=== PATIENT | female | born 1995 | race Caucasian/White ===

== ENCOUNTER 2016-07-25 15:24 | Outpatient (CLI) | payer SELFPAY ==
[2016-07-25 16:03] LABS: APPEARANCE CLOUDY (CLEAR); COLOR YELLOW (YELLOW)
[2016-07-25 16:04] LABS: BILIRUBIN NEGATIVE (NEGATIVE); GLUCOSE NEGATIVE (NEGATIVE); KETONE MODERATE mg/dL (NEGATIVE); LEUKOCYTE ESTERASE 2+ (NEGATIVE); NITRITE NEGATIVE (NEGATIVE); PROTEIN NEGATIVE (NEGATIVE); SPECIFIC GRAVITY 1.005 (1.005-1.020); UROBILINOGEN NORMAL (NORMAL)
[2016-07-25 16:05] LABS: RED CELLS - URINE 0-5 /hpf (0-5)
[2016-07-25 16:06] LABS: BACTERIA MODERATE /hpf (NONE SEEN); EPITHELIAL CELLS 0-5 /hpf (0-5); MUCUS <1+ /lpf (NONE SEEN)
[2016-07-25 16:48] LABS: BASOPHILS 0.1 % (0.0-2.0); EOSINOPHILS 0.1 % (0-7); HEMOGLOBIN 11.4 g/dL (12-16); IMMATURE GRANULOCYTES 1.3 % (0-5); LYMPHOCYTES 5.4 % (15-50); MCH 31.1 pg (26.0-34.0); MCHC 33.5 g/dL (31.0-37.0); MCV 92.9 fL (80.0-100.0); MEAN PLATELET VOLUME 13.1 fL (7.4-10.4); MONOCYTES 9.7 % (2-11); NEUTROPHILS 83.4 % (40-80); PLATELET COUNT 98 10x3/uL (130-400); RBC 3.66 10x6/uL (4.00-5.40); RDW 12.7 % (11.5-14.5); WBC 7.9 10x3/uL (4.8-10.8)
[2016-07-25 17:10] LABS: ALBUMIN 2.9 g/dL (3.4-5.0); ALKALINE PHOSPHATASE 151 U/L (46-116); ALT (SGPT) 17 U/L (10-68); BILIRUBIN - TOTAL 0.28 mg/dL (0.2-1.3); CALC OSMOLALITY 278 mosm/kg (275-300); CALCIUM 7.9 mg/dL (8.5-10.1); CHLORIDE - SERUM 106 mmol/L (98-107); CREATININE - SERUM 0.6 mg/dL (0.6-1.3); GLUCOSE 88 mg/dL (74-106); POTASSIUM - SERUM 3.4 mmol/L (3.5-5.1); PROTEIN - SERUM 6.3 g/dL (6.4-8.2); SODIUM 142 mmol/L (136-145); UREA NITROGEN 4 mg/dL (7-18); eGFR NON AFRICAN AMERICAN > 90 mL/min (90-120)
[2016-08-18 09:05] VITALS: BMI 23.0
== END 2016-07-26 08:40 | disposition home or self-care (01) ==
LOC: D.LDO 15:24 → D.LD 15:24 → D.LDO 07-26 08:40
PROVIDERS: Obstetrics & Gynecology
DX: Z34.03 Encounter for supervision of normal first pregnancy, third trimester (principal); Z3A.37 37 weeks gestation of pregnancy; R51 Headache

== ENCOUNTER → 2016-07-30 17:05 | Outpatient (CLI) | payer MEDICAID ==
[~2016-07-30 17:05] MED LIST: IBUPROFEN600 MG PO; PERCOCET 5-3251 TAB PO; PRENATAL COMPLE1 TAB PO
[2016-08-18 09:05] VITALS: BMI 23.0
== END | disposition home or self-care (01) ==
LOC: D.LDO 17:05
DX: O36.5930 Maternal care for other known or suspected poor fetal growth, third trimester, not applicable or unspecified (principal); Z3A.38 38 weeks gestation of pregnancy

== ENCOUNTER → 2016-08-09 12:28 | Outpatient (CLI) | payer MEDICAID ==
[2016-08-09 12:56] LABS: BASOPHILS 0.1 % (0.0-2.0); EOSINOPHILS 0.1 % (0-7); HEMATOCRIT 31.7 % (36.0-48.0); HEMOGLOBIN 10.5 g/dL (12-16); IMMATURE GRANULOCYTES 0.9 % (0-5); LYMPHOCYTES 21.4 % (15-50); MCH 30.1 pg (26.0-34.0); MCHC 33.1 g/dL (31.0-37.0); MCV 90.8 fL (80.0-100.0); MEAN PLATELET VOLUME 12.8 fL (7.4-10.4); MONOCYTES 12.6 % (2-11); NEUTROPHILS 64.9 % (40-80); PLATELET COUNT 111 10x3/uL (130-400); RBC 3.49 10x6/uL (4.00-5.40); RDW 13.1 % (11.5-14.5); WBC 7.7 10x3/uL (4.8-10.8)
[2016-08-18 09:05] VITALS: BMI 23.0
== END | disposition home or self-care (01) ==
LOC: D.LDO 12:28
PROVIDERS: Obstetrics & Gynecology
DX: O36.5930 Maternal care for other known or suspected poor fetal growth, third trimester, not applicable or unspecified (principal); Z3A.39 39 weeks gestation of pregnancy

== ENCOUNTER → 2016-08-16 09:35 | Outpatient (CLI) | payer MEDICAID ==
[2016-08-16 10:55] LABS: BASOPHILS 0.2 % (0.0-2.0); EOSINOPHILS 0.2 % (0-7); HEMATOCRIT 31.8 % (36.0-48.0); HEMOGLOBIN 10.5 g/dL (12-16); IMMATURE GRANULOCYTES 0.7 % (0-5); LYMPHOCYTES 17.5 % (15-50); MCV 90.9 fL (80.0-100.0); MEAN PLATELET VOLUME 12.8 fL (7.4-10.4); MONOCYTES 10.6 % (2-11); NEUTROPHILS 70.8 % (40-80); PLATELET COUNT 104 10x3/uL (130-400)
[2016-08-18 09:05] VITALS: BMI 23.0
== END | disposition home or self-care (01) ==
LOC: D.LDO 09:35
PROVIDERS: Obstetrics & Gynecology
DX: Z34.93 Encounter for supervision of normal pregnancy, unspecified, third trimester (principal); Z3A.40 40 weeks gestation of pregnancy

== ENCOUNTER 2016-08-17 02:15 | Inpatient (IN) | payer MEDICAID ==
[2016-08-17] VITALS (24 sets, daily range): BP systolic 105–145; BP diastolic 63–91; BMI 23.0
[~2016-08-17] VITALS: Ht 152.4 cm; Wt 53.5 kg
[2016-08-17 08:24] LABS: HEMATOCRIT 31.6 % (36.0-48.0); HEMOGLOBIN 10.5 g/dL (12-16); MCH 30.3 pg (26.0-34.0); MCHC 33.2 g/dL (31.0-37.0); MCV 91.1 fL (80.0-100.0); MEAN PLATELET VOLUME 13.5 fL (7.4-10.4); RBC 3.47 10x6/uL (4.00-5.40)
[2016-08-17 08:49] LABS: WBC 10.6 10x3/uL (4.8-10.8)
--- NOTE | 2016-08-17 18:51 | NUR ---
THE PATIENT REQUESTED A SHORT STAY IN [place] SO SHE COULD VISIT WITH HER FAMILY
--- NOTE | 2016-08-17 18:52 | NUR ---
MINOR LOCIA NOTED
--- NOTE | 2016-08-17 18:52 | NUR ---
FUNDUS FIRM AT [facility]
--- NOTE | 2016-08-17 19:05 | NUR ---
THIS G1 NOW P1 REC'D TO ROOM 1273 BY Favio ANDERSEN, PLATE MAKER FROM RECOVERY ROOM POST C/S DELIVERY AT 1807. VSS AT THIS TIME. PT AWAKE, ALERT AND ORIENTED X3 PER REPORT.
--- NOTE | 2016-08-17 19:07 | NUR ---
FUNDUS FIRM AND ML @ U. MANDI ADAN SCANT.
--- NOTE | 2016-08-17 19:14 | NUR ---
THIS RN RESUMING CARE OF THIS POST C/S DELIVERY AT 1807. PT'S FATHER CURRENTLY AT BEDSIDE AND SUPPORTIVE OF PT. SHIFT ASSESSMENT COMPLETED. VSS AT THIS TIME. PLAN OF CARE DISCUSSED WITH PT AND HER FATHER. PT TEARFUL AT THIS TIME, STATING "NO ONE HAS DONE ANYTHING THAT I HAVE WANTED TODAY AND I JUST WANT TO SLEEP AND BE LEFT ALONE TO SLEEP." RN EXPLAINED TO PT THE REASONS THAT STAFF ARE CHECKING ON HER CONTINUOUSLY AND THAT WE ARE TRYING TO ENSURE THAT THE BEST AND SAFEST CARE POSSIBLE ARE PROVIDED TO HER AND HER . PT VERBALIZED UNDERSTANDING. PT REQUESTING TO SEE AT THIS TIME EXPLAINED THAT INFANT HAD TO REMAIN IN NBN FOR TRANSITION SHE IS UNABLE TO MAINTAIN BODY TEMP ON HER OWN AND SOON SHE REACHED 98.6 FOLLOWING BATH NBN RN WOULD BRING INFANT TO ROOM FOR BONDING, PT AGAIN BECAME TEARFUL AND STATES AGAIN "NO ONE IS DOING ANYTHING THAT I WANT." RN REINFORCED AND EXPLAINED TO PT THE IMPORTANCE OF GETTING INFANT TO APPROPRIATE BODY TEMP PRIOR TO BRINGING TO ROOM. PT FATHER AT BEDSIDE AND ENCOURAGED PT AND REASSURED HER ALSO THAT INFANT WOULD BE BROUGHT TO ROOM NANI. ORIENTED PT TO ROOM AND CL USE FOR ASSISTANCE. REINFORCED VISITOR POLICY WITH PT AND FAMILY AND ENCOURAGED TO KEEP VISITORS TO A MININIUM AND FOR SHORT PERIODS OF TIME SO THAT PT COULD REST. VERBALIZED UNDERSTANDING. 750 MLS PINK TINGED URINE EMPTIED FOR SANDERS AT THIS TIME. BED PLACED IN LOW POSITION WITH UPPER SIDE RAILS RAISED X2. CL/PHONE PLACED WITHIN REACH. FAMILY MEMBERS AT BEDSIDE VISITING WITH PT AT THIS TIME.
--- NOTE | 2016-08-17 19:54 | NUR ---
DEMEROL EVENTS SPECIALIST INITIATED PER ORDERS. PT INSTRUCTED ON EVENTS SPECIALIST USE. MEDICATION USE AND SIDE EFFECTS DISCUSSED WITH PT AND FAMILY MEMBERS AT BEDSIDE, VERBALIZED AND DEMONSTRATED USE OF EVENTS SPECIALIST FOR PAIN. DENIES QUESTIONS. PAIN CURRENTLY 11/29, ABD CRAMPING WITH "SHARP AND BURNING" TO INCISION. ICE PACK PLACED TO INCISION. ICE CHIPS GIVEN PER REQUEST. DENIES ADDITIONAL NEEDS AT THIS TIME.
--- NOTE | 2016-08-17 20:24 | NUR ---
PAIN REASSESSMENT COMPLETED. PAIN CURRENTLY 08/30, PT REPORTS THAT SHE HAS BEEN RESTING "SOME." EYES CLOSED INITIALLY WHEN RN ENTERED ROOM BUT PT OPENED WHEN RN OPENED DOOR. DENIES NEEDS AT THIS TIME. WILL CONT TO MONITOR AND ASSIST PRN.
--- NOTE | 2016-08-17 20:52 | NUR ---
TOWELS, CHUX, AND LINEN CHANGE COMPLETE. REPOSITIONED PT FROM BACK TO RIGHT SIDE WITH PILLOW PLACED BEHIND BACK FOR COMFORT AND SUPPORT. INCENTIVE SPIROMETER USED WITH PT X8, ENCOURAGED TO USE X10, PT STATES THAT SHE CAN'T AT THIS TIME R/T PAIN. COUGH AND DEEP BREATHING ENCOURAGED AND ATTEMPTED WITH POOR EFFORT BY PT. MODERATE AMT RUBRA LOCHIA TO PERIPAD, NO CLOTS, FUNDUS FIRM, UU. SANDERS CONTINUES TO DRAIN TO BEDSIDE DRAINAGE SYSTEM. PERINUM CLEANSED WITH WARM WASH CLOTHES. BILATERAL LABIA WITH 3+ EDEMA NOTED, ICE PACK APPLIED. NEW PERIPAD APPLIED. BOWELS SOUNDS PRESENT, HYPOACTIVE X4 QUADS, PT REPORTS THAT SHE IS BELCHING AND HAS PASSED FLATUS X1. SPRITE GIVEN PER REQUEST. BLANKETS CHANGED ALSO. BED PLACED IN LOW POSITION WITH UPPER SIDE RAILS RAISED X2, CL/PHONE PLACED WITHIN PT REACH. NBN RN TO ROOM WITH AT THIS TIME TO PROVIDE INSTRUCTION AND ASSISTANCE WITH .
--- NOTE | 2016-08-17 21:21 | NUR ---
RN TO ROOM. PT USING NIPPLE SHEILD. PLASTIC EDGE OF NIPPLE SHEILD FLIPPED OVER, INSTRUCTED AND DEMONSTRATED TO PT IMPORTANCE OF SECURING EDGES OF NIPPLE SHEILD, VERBALIZED UNDERSTANDING. PILLOW PLACED UNDER LEFT ELBOW FOR SUPPORT DURING NURSING. RN ASSISTED WITH GETTING INFANT LATCHED. PT REPORTS THAT ALL FAMILY MEMBERS HAVE LEFT TO GO HOME AND SHE WILL BE STAYING BY HERSELF TO [place] WITH THROUGH THE NIGHT. DENIES NEEDS AT THIS TIME. CL/PHONE WITHIN REACH. INSTRUCTED TO CALL RN IF ASSISTANCE NEEDED WITH FEEDING, VERBALIZED UNDERSTANDING. NBN RN TO ROOM AT 8210.
--- NOTE | 2016-08-17 22:10 | NUR ---
PAIN 5/10, CONSTANT INCISIONAL BURNING. STATES THAT CMM INSPECTOR IS NOT EASING BURNING PAIN BUT IS HELPING WITH CRAMPING. TORADOL GIVEN PER ORDERS, EDUCATED ON TORADOL USES AND SIDE EFFECTS, NODDED. PT CURRENTLY ON RIGHT SIDE WITH HOB AT 30 DEGREES. DENIES ADDITIONAL NEEDS. NEW ICE PACK PLACED TO INCISION AND LABIA. CL/PHONE WITHIN PT REACH. BED IN LOW POSITION WITH UPPER SIDE RAILS RAISED X2.
--- NOTE | 2016-08-17 22:40 | NUR ---
PAIN REASSESSMENT COMPLETED. 010 AT THIS TIME. PT RESTING WITH EYES CLOSED, RESPIRATIONS REGULAR, NO S/S OF DISTRESS NOTED. WILL CONT TO MONITOR AND ASSIST PRN.
--- NOTE | 2016-08-17 23:40 | NUR ---
ROUNDS MADE. PT RESTING WITH EYES CLOSED AT THIS TIME. RESPIRATIONS REGULAR, NO S/S OF DISTRESS NOTED. CL/PHONE WITHIN REACH. BED IN LOW POSITION WITH UPPER SIDE RAILS RAISED X2. WILL CONT TO MONITOR AND ASSIST PRN.
[2016-08-18 00:10] VITALS: BP 118/74
--- NOTE | 2016-08-18 00:10 | NUR ---
VSS. FUNDUS FIRM U1. SMALL AMT RUBRA LOCHIA TO PERIPAD. TOWELS PERIPAD AND CHUX CHANGED. PERINUM CLEANSED. NEW PERIPAD APPLIED. PT REPOSITIONED TO BACK FROM RIGHT SIDE, REFUSED TO TURN TO LEFT SIDE. 850 MLS CLEAR YELLOW URINE EMPTIED FROM SANDERS. PAIN 08/30, PT USED COPY CENTER OPERATOR WITH RN AT BEDSIDE. SPRITE GIVEN PER REQUEST, ROOM TEMP DECREASED PER REQUEST. DENIES ADDITIONAL NEEDS AT THIS TIME. REQUESTS THAT INFANT REMAIN IN N FOR NEXT FEEDING "SO THAT I CAN REST." Jerome MAK, N RN NOTIFIED OF REQUEST. PT CONSENTED TO HAVING FORMULA FOR THIS FEEDING AND REQUESTS THAT INFANT COME TO ROOM AT 0300 FOR NEXT FEEDING. BED PLACED BACK IN LOW POSITION WITH UPPER SIDE RAILS RAISED X2. CL/PHONE WITHIN REACH.
--- NOTE | 2016-08-18 02:06 | NUR ---
ROUNDS MADE. PT USED INCENTIVE SPIROMETER X10, COUGH AND DEEP BREATHING PERFORMED WITH WEAK EFFORT. PT REPOSITIONED TO RIGHT SIDE. SCDS ON. ICE WATER AND JELLO GIVEN PER REQUEST. DENIES ADDITIONAL NEEDS AT THIS TIME. BED IN LOW POSITION WITH UPPER SIDE RAILS RAISED X2. CL/PHONE WITHIN REACH. WILL CONT TO MONITOR AND ASSIST PRN.
--- NOTE | 2016-08-18 04:08 | NUR ---
RN TO BEDSIDE. VSS. 475 MLS EMPTIED FROM SANDERS CATHETER. PT PERFORMED INCENTIVE SPIROMETER X10 AND COUGHING AND DEEP BREATHING WITH WEAK EFFORT. FUNDUS REMAINS FIRM, U1, SMALL AMT RUBRA LOCHIA NOTED TO PERIPAD, NO CLOTS. PERINUM CLEANSED WITH NEW PERIPAD PLACED. GOWN, TOWEL, CHUX, AND PILLOW CASES CHANGED AT THIS TIME. PAIN 4/10 FOLLOWING ACTIVITY TO ABD, SORENESS AND BURNING AT INCISION. GUARD MUSEUM USED WHILE RN AT BEDSIDE. 2-3/10 PRIOR TO ACTIVITY. JELLO AND APPLE JUICE GIVEN PER REQUEST. BOWEL SOUNDS ACTIVE X4 QUADS, PT REPORTS THAT SHE IS PASSING FLATUS. DENIES ADDITIONAL NEEDS AT THIS TIME. BED PLACED IN LOW POSITION WITH UPPER SIDE RAILS RAISED X2. SCD'S REMOVED PER PT REQUEST. CL/PHONE PLACED IN REACH. WILL CONT TO MONITOR AND ASSIST PRN.
[2016-08-18 04:30] VITALS: BP 116/71
[2016-08-18 06:14] LABS: RAPID PLASMA REAGIN Non Reactive (Non Reactive)
[2016-08-18 06:36] LABS: BASOPHILS 0.1 % (0.0-2.0); EOSINOPHILS 0.1 % (0-7); HEMATOCRIT 28.2 % (36.0-48.0); HEMOGLOBIN 9.2 g/dL (12-16); IMMATURE GRANULOCYTES 0.4 % (0-5); LYMPHOCYTES 10.4 % (15-50); MCH 29.6 pg (26.0-34.0); MCHC 32.6 g/dL (31.0-37.0); MCV 90.7 fL (80.0-100.0); MEAN PLATELET VOLUME 13.5 fL (7.4-10.4); MONOCYTES 6.9 % (2-11); NEUTROPHILS 82.1 % (40-80); PLATELET COUNT 82 10x3/uL (130-400); RBC 3.11 10x6/uL (4.00-5.40); RDW 13.3 % (11.5-14.5); WBC 9.6 10x3/uL (4.8-10.8)
--- NOTE | 2016-08-18 06:52 | NUR ---
SANDERS CATH D/C'D WITH 175 MLS OF CLEAR YELLOW URINE PRESENT. PIV REMOVED PER PT REQUEST FOLLOWING SALINE LOCKING PIV STATING THAT SITE IS SORE. NO REDNESS, WARMTH, OR SWELLING NOTED. 100 MG DEMEROL WASTED FROM CERTIFIED ATHLETIC TRAINER. PT LEFT SITTING HIGH FOWLERS POSITION, EATING JELLO. DENIES NEEDS AT THIS TIME. BED LEFT IN LOW POSITION WITH UPPER SIDE RAILS RAISED X2. CL/PHONE WITHIN REACH. REINFORCED USE OF CL PROIR TO GETTING UP OOB, VERBALIZED UNDERSTANDING.
[2016-08-18 07:23] LABS: PLATELET ESTIMATE DECREASED
[2016-08-18 07:27] VITALS: BP 111/72
--- NOTE | 2016-08-18 07:40 | NUR ---
ASSESSMENT DONE. PT TILTED TO LT SIDE. ANSWERS QUESTIONS APPRO. SOSA AT WILL. ABD DRESSING CD&I. SMALL LOCHIA ON LUCIA PAD. IN ROOM. CLEAR LIQ DIET SERVED.
--- NOTE | 2016-08-18 07:59 | NUR ---
AMBULATORY TO BATHROOM. VOIDED 300CC. LUCIA PAD PLACED. BACK TO BED. STATES SHE WOULD LIKE PAIN MEDICATION- REQUESTS LOWER DOSE PERCOCET WHEN QUESTIONED. MEDS GIVEN.
[2016-08-18 09:05] VITALS: Ht 152.4 cm; Wt 53.5 kg
--- NOTE | 2016-08-18 09:15 | NUR ---
UP TO BATHROOM. VOIDED 150CC IN CONTAINER. REQUESTING TO SHOWER AT THIS TIME.
--- NOTE | 2016-08-18 09:45 | NUR ---
SHOWER TAKEN AND CHITRA WELL. LINENS CHANGED. ABD DRESSING REMOVED -INCISION APPEARANCE WNL.
--- NOTE | 2016-08-18 10:45 | NUR ---
UP TO BATHROOM TO VOID NEEDED. SCD'S REPLACED POST RETURNING TO BED. NO REQUESTS.
[2016-08-18 13:30] VITALS: BP 107/62
--- NOTE | 2016-08-18 13:30 | NUR ---
resting in bed. family at bedside- in room. pt denies wanting any pain medication.
--- NOTE | 2016-08-18 14:32 | NUR ---
rings call light.pt standing at bedside. requesting go to nursery. states would like to take a nap. offered pain medication and states that she would like the same medication that she took this morning. pt up to void.
[2016-08-18 17:40] VITALS: BP 126/73
--- NOTE | 2016-08-18 17:40 | NUR ---
standing in room holding . rates pain a 3 on scale of 0-10. denies needs. requesting that be taken to nursery so she can take a nap. states that she received visitors when trying to nap earlier.
--- NOTE | 2016-08-18 18:50 | NUR ---
report to pm shift.
--- NOTE | 2016-08-18 19:06 | NUR ---
LYING ON BACK WITH EYES CLOSED. RESPIRATIONS REGULAR. LIGHTS ARE DIMMED IN ROOM.
--- NOTE | 2016-08-18 19:55 | NUR ---
CONTINUES TO LIE ON BACK WITH EYES CLOSED AND RESPIRATIONS REGULAR.
--- NOTE | 2016-08-18 20:24 | NUR ---
PT. AWAKENED FOR . INFORMED PT. TO CALL THIS NURSE WHEN COMPLETED SO ASSESSMENT COULD BE DONE. PT. STATED UNDERSTANDING.
[2016-08-18 21:12] VITALS: BP 118/75
--- NOTE | 2016-08-18 21:12 | NUR ---
SHIFT ASSESSMENT COMPLETE AT THIS TIME. PT UP AMB IN ROOM AND REQUESTING NEW BLANKETS FOR DUE TO FECAL SOILING. SAME PROVIDED. SWADDLED AND PLACED IN OPEN CRIB PER THIS RN AT PT REQUEST. PT TO BATHROOM TO VOID BEFORE SITTING DOWN FOR ASSESSMENT. PT STATES BLEEDING HAS BEEN LIGHT WITH NO CLOTS NOTED AND SHE HAD JUST CHANGED PERIPAD. BREATH SOUNDS CLEAR & UNLABORED X2. PPP, HR-RRR, FUNDUS FIRM, ML, U/2. BLI C/D/I WITH DERMABOND NOTED. EDU PT ON PLACING PERIPAD OVER AREA TO KEEP DRY. PT VERBALIZED UNDERSTANDING. BOWEL SOUNDS HYPOACTIVE RLQ, RUQ, LLQ; ACTIVE IN LUQ. EDU PT ON AMB AND THAT SHE NEEDS TO WALK THE SILVESTRE BEFORE GOING TO SLEEP FOR THE NIGHT. PT VERBALIZES UNDERSTANDING AND IS AGREEABLE. PT RATES PAIN CURRENTLY 1/10, REQUESTS MOTRIN FOR PAIN AT THIS TIME. PT INQUIRES ABOUT PERCOCET, ADV PT WITH PAIN RATING WE NEED TO TRY A MOTRIN FIRST AND IF AFTER PAIN REASSESSMENT SHE IS STILL HURTING WE CAN TRY THE PERCOCET. PT IS AGREEABLE. PT REQUESTS FOOD TO BE REWARMED, SAME PROVIDED. PT DENIES FURTHER NEEDS AT THIS TIME. PLAN TO BRING MOTRIN. BED LOW, WHEELS LOCKED, CL IN REACH, SIDE RAILS UP X2.
--- NOTE | 2016-08-18 21:30 | NUR ---
MOTRIN 600MG X1 TAB GIVEN FOR PAIN RATED 1/10. PT DENIES FURTHER NEEDS AT THIS TIME. WILL CONT. POC.
--- NOTE | 2016-08-18 22:02 | NUR ---
PT RATES PAIN CURRENTLY 0/10. DENIES FURTHER NEEDS.
--- NOTE | 2016-08-18 22:03 | NUR ---
PT RINGS CL. THIS RN TO BEDSIDE. PT REQUESTS TO GO TO NBN AT THIS TIME SO SHE CAN REST. REINFORCED TEACHING THAT SHE NEEDS TO AMB IN SILVESTRE. PT VERBALIZED UNDERSTANDING. MEAL TRAY REMOVED AT THIS TIME AND LIGHTS TURNED OFF PER PT REQUESTS. INFANT TRANSPORTED VIA OPEN CRIB TO N PER THIS RN.
--- NOTE | 2016-08-18 22:21 | NUR ---
THIS NURSE TO PT. ROOM TO ANSWER CALL LIGHT. PT. STATES THAT SHE HIT BUTTON BY MISTAKE. INQUIRED ABOUT PT. WALKING. PT. STATES SHE HAS BEEN WALKING IN ROOM AND CURRENTLY READY TO TRY AND SLEEP. LIGHTS IN ROOM ALREADY DIMMED. SIDE RAILS UP X 2. DENIES ANY NEEDS AT THIS TIME.
--- NOTE | 2016-08-18 23:40 | NUR ---
LYING ON LT SIDE. RESPIRATIONS REGULAR. DOES NOT AROUSE TO THIS NURSE OPENING DOOR.
--- NOTE | 2016-08-19 00:05 | NUR ---
PT. AWAKENED FOR . PT. SLOW AT AWAKEN. ID OF INFANT AND MOTHER MATCHED. PT. REQUESTED TO GET UP TO BATHROOM PRIOR TO . PT. AMBULATORY TO BATHROOM USING PILLOW AGAINST ABD. VOIDED AND BACK TO BED. REQUESTING PAIN MED. INFANT HANDED TO PT. FOR .
--- NOTE | 2016-08-19 00:17 | NUR ---
PT. BOTTLE FEEDING INFANT. PERCOCET GIVEN ORDERED. PT. RATES PAIN A 3 OF 10 ON PAIN SCALE AND DESCRIBES INCISIONAL. PT. WILL CALL THIS NURSE WHEN SHE IS READY TO SEND INFANT BACK TO NBN. TALKING SOFTLY AND LOVINGLY TO INFANT. PT. RELATES WHEN ASKED ABOUT HER HELP AT HOME THAT HER SISTER IS COMING TO SPEND A WEEK WITH HER TO HELP.
[2016-08-19 00:33] VITALS: BP 114/59
--- NOTE | 2016-08-19 00:33 | NUR ---
PT. STATES HAS FINISHED EATING. PRESENTLY BOTTLEFEEDING. REQUEST BE RETURNED TO NBN. PT. STATES SHE DESIRES TO SLEEP. RETURNED TO NBN. VITAL SIGNS OBTAINED.
--- NOTE | 2016-08-19 01:08 | NUR ---
LYING ON LT SIDE. RESPIRATIONS REGULAR.
--- NOTE | 2016-08-19 03:30 | NUR ---
LYING ON LT SIDE. RESPIRATIONS REGULAR.
--- NOTE | 2016-08-19 04:17 | NUR ---
NBN TRANSPORTS TO ROOM. PT UP TO VOID. CLEAN PANTIES AND PADS PROVIDED. PER Casper LUCAS'S RN PT IS BOTTLE FEEDING FIRST, THEN PLANS TO BREASTFEED AFTER.
--- NOTE | 2016-08-19 04:50 | NUR ---
PT.REQUESTED INFANT BE RETURNED TO NBN. ALSO REQUESTED PAIN MED. REQUESTED IBUPROFEN. TO NBN.
--- NOTE | 2016-08-19 04:55 | NUR ---
PT REQUESTS & RECEIVES MOTRIN 600 MG X1 TAB FOR PAIN RATED 3/10 IN ABD AT THIS TIME. PT ALSO REQUESTS & RECEIVES REG. COLA. DENIES FURTHER NEEDS AT THIS TIME.
[2016-08-19] MEDS ORDERED: PRENATAL COMPLE1 TAB PO (04:56)
--- NOTE | 2016-08-19 05:00 | NUR ---
MALE AND OLDER FEMALE TO DESK REPORTING THAT THEY ARE HERE FOR KELSI MENDEZ THAT WAS TO BE HERE AT 5AM FOR INDUCTION. ASKED THE VISITORS THEIR RELATIONSHIP TO PT. MALE STATES "I AM THE FATHER OF THE BABY." RUBEN APPEARS CHEERFUL. INTO PT. ROOM AND INFORMED PT. OF ARRIVAL OF MALE THAT STATES HE IS THE FATHER OF THE BABY AND ALSO FOB'S MOTHER. PT. APPEARS SHOCKED AND STATES "SO MUCH WAS GOING ON, I FORGOT TO CALL HIM." PT. KEEPS REPEATING "OH MY". ASKED PT. IF SHE WANTED THEM TO WAIT IN WAITING ROOM UNTIL SHE HAS TIME TO THINK THINGS THROUGH. PT. STATES, "NO, JUST LET THEM IN." VISITORS ESCORTED TO ROOM.
--- NOTE | 2016-08-19 05:08 | NUR ---
PT. CALLS ASKING IF COULD BE BROUGHT TO ROOM. SAME DONE. ATMOSPHERE IN ROOM CALM.
--- NOTE | 2016-08-19 05:34 | NUR ---
PT. SITTING UP IN ROCKING CHAIR. RATES PAIN A 1 OF 10 ON PAIN SCALE. PT. CHEERFUL. FOB HOLDING INFANT.
--- NOTE | 2016-08-19 06:29 | NUR ---
PT. LYING IN BED STROKING 'S FACE. FOB AND FOB'S MOTHER REMAIN IN PT. ROOM. PT. DENIES ANY NEEDS.
--- NOTE | 2016-08-19 07:08 | NUR ---
THIS RN AND Selam KILGORE RN TO ROOM FOR BEDSIDE REPORT. PT CURRENTLY SITTING UP ON THE SIDE IF THE BED VISITING WITH GUESTS. INFANT IN CRIB AT BEDSIDE. PT DENIES PAIN OR NEEDS AT THIS TIME. PT INFORMED THAT THIS RN WILL RETURN TO ROOM FOR SHIFT ASSESSMENT.
--- NOTE | 2016-08-19 07:22 | NUR ---
BOTTLE TAKEN TO ROOM FOR FEEDING PER PT REQUEST.
[2016-08-19] MEDS ORDERED: PERCOCET 5-3251 TAB PO (07:49)
[2016-08-19] MEDS ORDERED: IBUPROFEN600 MG PO (07:49)
--- NOTE | 2016-08-19 07:53 | OP ---
PATIENT NAME: KELSI MENDEZ MEDICAL RECORD: [id number] :95 LOCATION:[id number] ADMISSION DATE:08/17/16 SURGEON: NAIAD PRADO MD DATE OF OPERATION: 08/17/2016 PREOPERATIVE DIAGNOSES: 1. Intrauterine at 40 weeks and 5 days. 2. Secondary arrest of dilation. 3. Failure of descent. POSTOPERATIVE DIAGNOSES: 1. Intrauterine at 40 weeks and 5 days. 2. Secondary arrest of dilation. 3. Failure of descent. 4. asynclitism. 5. Delivered. SURGEON: Naida Prado MD ANESTHESIA: Epidural anesthesia with Deo Crawford MD and Walter Hoyt CRNA. PROCEDURE: Primary low-transverse . FINDINGS: Delivery of viable female infant from asynclitic vertex presentation via primary low-transverse under epidural anesthesia at 1807 p.m. with weight of 8 pounds 5 ounces and scores of 9 and 9 at 1 and 5 minutes respectively. No nuchal cord was noted. The cord was clamped and cut. The was bulb suctioned and handed to awaiting pediatric nursing personnel. The placenta was delivered manually intact with 3-vessel cord at 1808 p.m. Twenty units of Pitocin and 1 liter of normal saline was begun IV. The fundus was noted to be firm. Normal appearing uterus, ovaries and tubes bilaterally. The patient went to the recovery room in stable condition, the to the nursery. DESCRIPTION OF PROCEDURE: After informed consent was given, the patient was taken to the operating room where epidural anesthesia was bolused and was found to be adequate. A Lewis catheter was already in place with a blood tinged urine return noted. She was prepped and draped sterilely. When adequate anesthesia was noted, a Pfannenstiel skin incision was made through the skin and carried down to the underlying layer of fascia. The fascia was incised in the midline and fascial incision extended bilaterally with the Martin scissors. The superior portion of the fascial incision was grasped with 2 Paras clamps and the rectus muscles dissected off sharply and bluntly. Attention was then turned to the inferior portion of the fascial incision, which was again grasped with 2 Paras clamps and the rectus muscles dissected off sharply and bluntly. The rectus muscles were in the midline, the peritoneum identified and entered bluntly with a finger. This incision was extended superiorly and inferiorly with good visualization of the bladder. The bladder blade was inserted and the vesicouterine peritoneum was grasped with smooth pickups and entered sharply with Metzenbaum scissors. This incision was extended bilaterally and a bladder flap created digitally. The bladder blade was reinserted. The hysterotomy was created with a knife. This was extended bilaterally bluntly and the infant's head delivered atraumatically. No nuchal cord was noted. The cord was clamped and cut. The infant was bulb suctioned and handed to awaiting pediatric nursing personnel. The placenta was delivered, manually expressed and passed off the OPERATIVE REPORT [id number] KELSI MENDEZ as specimen. Cord blood was obtained. The uterus was exteriorized, cleared of all clots and debris. The interior of the uterus was wiped with a moist lap sponge. The hysterotomy was then closed in 2 layers with 0 chromic in a running locked fashion, the second layer imbricating the first. Excellent hemostasis was noted and the uterus was returned to the abdomen. The abdomen was irrigated profusely and noted to be hemostatic. Carrie dust was placed over the hysterotomy to aid additionally in hemostasis. The rectus muscles were reapproximated in the midline with 3 interrupted chromic sutures. The fascia was closed with 1-0 Vicryl in a running fashion, locking the first suture. The subcutaneous tissue was irrigated, any bleeders cauterized with the Bovie and when noted to be sufficiently dry, was closed with 3-0 Vicryl in a running fashion and the skin was closed with 3-0 Monocryl in a subcuticular fashion. Dermabond and pressure dressing were applied. [place] blood tinged urine was noted at completion of the procedure. The patient tolerated the procedure well. Sponge, lap, needle and instrument counts reported correct times 2 and the patient went to the recovery room in stable condition, the to the nursery. ESTIMATED BLOOD LOSS: 800 cc. URINE OUTPUT: 200 cc. SPECIMENS: Placenta and cord blood. COMPLICATIONS: None. TRANSINT:[id number] Voice Confirmation ID: [id number] DOCUMENT ID: [id number] NAIDA PRADO MD at 0753 CC: [id number] DICTATION DATE: 08/17/162043 WEED SCIENCE RESEARCH TECHNICIAN: [id number] ADM IN [facility] [address] [id number]
--- NOTE | 2016-08-19 08:01 | NUR ---
THIS RN RETURNS TO ROOM FOR SHIFT ASSESSMENT. PT NOW EATING BREAKFAST. PT ASKED TO RING CALL LIGHT ONCE SHE HAS FINISHED SO THIS RN KERRY RETURN FOR SHIFT ASSESSMENT.
[2016-08-19 08:20] VITALS: BP 124/72
--- NOTE | 2016-08-19 08:20 | NUR ---
PT RINGS CALL LIGHT TO REPORT SHE HAS FINISHED EATING. THIS RN TO BEDSIDE. PT AA&O X 4. PT TO LYING IN BED FOR ASSESSMENT. V/S STABLE. BREATHSOUNDS CL/=, ABD SOFT, NON DISTENDED. BOWELSOUNDS PRESENT X 4. PT REPORTS PASSING FLATUS. LOW TRANSVERSE INCISION C/D/I W/DERMABOND. PT REPORTS VOIDING W/EASE. NO EDEMA NOTED TO LOWER EXTERMITIES. PT RATES PAIN 06/01. PT INFORMED THAT SHE HAS A DISCHARGE ORDER FOR TODAY. DTAP INFORMATION SHEET PROVIDED. PT DENIES NEEDS AT THIS TIME. FRESH ICE WATER SERVED IN [facility]. BED LOW, SIDE RAILS UP X 2. CALL LIGHT AND PHONE AT PT'S SIDE. VISITORS X 3 IN ROOM. UP IN A VISITORS ARMS.
--- NOTE | 2016-08-19 08:36 | NUR ---
DR MARIE TO ROOM TO SEE PT AT THIS TIME.
--- NOTE | 2016-08-19 08:50 | NUR ---
AM rounds- pt awake and alert. Denies needs. Discharge discussion completed.
--- NOTE | 2016-08-19 09:05 | NUR ---
PT AMBULATING IN SILVESTRE AT THIS TIME.
--- NOTE | 2016-08-19 10:00 | NUR ---
THIS RN TO BEDSIDE FOR DISCHARGE TEACHING. INFORMATION ON PP CARE AFTER , PP DEPRESSION,HOW TO FEED YOUR BABY AND HOW TO TAKE MEDICATIONS PROVIDED. PT DECLINES THE TDAP AT THIS TIME. MD FOLLOW APPT CARD AND PRESCRIPTIONS PROVIDED. QUESTIONS ANSWERED TO PT SATISFACTION. [facility] SERVED. NURSERY TO ROOM AT THIS TIME FOR DISCHARGE.
--- NOTE | 2016-08-19 10:30 | NUR ---
THIS RN TO ROOM TO INFORM PT THAT HER FATHER HAS BEEN CALLED TO COME PICK HER UP. NO NEEDS VOICED AT THIS TIME. DECLINES OFFER TO MEDICATE PRIOR TO D/C AT THIS TIME. RATES PAIN 06/01.
--- NOTE | 2016-08-19 11:00 | NUR ---
PT'S FATHER HAS ARRIVED. INFORMED THAT HE WILL HAVE TO BRIGN THE CARSEAT IN FOR PT TO PLACE IN FOR CONFIRMATION THAT SHE KNOWS HOW TO CORRECTLY PUT IN THE SEAT.
--- NOTE | 2016-08-19 11:10 | NUR ---
PT REPORTS SHE IS READY FOR DISCHARGE. INFANT APPEARS TO BE PLACED AND HARNESSED CORRECTLY IN CARSEAT. PT TRANSPORTED VIA W/C PER VOLUNTEER TO AWAITING CAR TO BE DRIVEN HOME BY HER FAMILY.
== END 2016-08-19 11:10 | DRG 766 ==
LOC: D.LDO 02:15 → D.LD 07:31
PROVIDERS: Specialist; ADMIT Obstetrics & Gynecology
PROC: 10D00Z1 Extraction of Products of Conception, Low, Open Approach (ICD-10-PCS; principal; 2016-08-17 18:00)
DX: O99.12 Other diseases of the blood and blood-forming organs and certain disorders involving the immune mechanism complicating childbirth (principal); Z3A.40 40 weeks gestation of pregnancy; Z37.0 Single live birth; O62.1 Secondary uterine inertia; O99.344 Other mental disorders complicating childbirth; F41.9 Anxiety disorder, unspecified